=== PATIENT | female | born 1945 | race Two or more races ===

== ENCOUNTER 2020-05-07 10:13 | Outpatient (CLI) | payer OTHER | END 2020-05-07 10:19 | disposition home or self-care (01) | LOC: TOM 10:13 | PROVIDERS: ATTEND Internal Medicine Gastroenterology | DX: K57.90 Diverticulosis of intestine, part unspecified, without perforation or abscess without bleeding (principal); N28.89 Other specified disorders of kidney and ureter; K56.50 Intestinal adhesions [bands], unspecified as to partial versus complete obstruction; K56.600 Partial intestinal obstruction, unspecified as to cause ==